=== PATIENT | male | born 1970 | race Caucasian/White ===

== ENCOUNTER → 2017-10-26 | Outpatient (CLI) | payer SELFPAY ==
[~2017-10-26] MED LIST: NAPR220C15 PO
== END | disposition home or self-care (01) ==
LOC: RAH 10:38
PROVIDERS: ATTEND Physical Medicine & Rehabilitation
DX: M79.674 Pain in right toe(s) (principal); R60.0 Localized edema
CPT/HCPCS: 73718

== ENCOUNTER → 2017-10-28 | Outpatient (CLI) | payer BC, SELFPAY ==
[~2017-10-28] MED LIST changes: +GADOBENATE DIMEGLUMINE 20 ML IV ONE
[2017-10-28 11:32] LABS: BASOPHILS % (AUTO) 0.5 % (0.0-5.0); EOSINOPHILS % (AUTO) 0.7 % (0.0-8.0); LYMPHOCYTES % (AUTO) 31.3 % (21.0-51.0); MEAN CORPUSCULAR HEMOGLOBIN 31.6 pg (27.0-33.0); MEAN CORPUSCULAR HGB CONC 35.6 g/dL (32.0-36.0); MEAN CORPUSCULAR VOLUME 88.6 fL (79-99); NEUTROPHILS % (AUTO) 59.5 % (40.0-77.0); PLATELET COUNT (AUTO) 221 K/uL (130-400); RED BLOOD CELL COUNT(AUTO) 4.63 MIL/uL (4.50-6.20); RED CELL DISTRIBUTION WIDTH 12.5 % (11.0-15.5); WHITE BLOOD COUNT (AUTO) 3.3 K/uL (4.8-10.8)
[2017-10-28 11:42] LABS: CREATININE 0.9 mg/dL (0.5-1.5); POTASSIUM 3.7 mmol/L (3.5-5.1)
[2017-10-28 11:47] LABS: ALBUMIN 4.3 g/dL (3.5-5.0); BILIRUBIN,TOTAL 0.8 mg/dL (0.2-1.0); TOTAL PROTEIN, SERUM 7.8 g/dL (6.0-8.3)
== END | disposition home or self-care (01) ==
LOC: EDH 11:10 → UNDOADMIN 11:14 → EDHIP 11:14 → EDSTATUS 17:13 → DAH 17:14
PROVIDERS: ATTEND Family Medicine
DX: M79.671 Pain in right foot (principal); L03.032 Cellulitis of left toe; Q60.0 Renal agenesis, unilateral
CPT/HCPCS: 36415; 73720; 80053; 85025; 85651; 86141; A9577

== ENCOUNTER → 2018-05-31 | Outpatient (CLI) | payer BC, SELFPAY ==
[~2018-05-31] MED LIST changes: -GADOBENATE DIMEGLUMINE 20 ML IV ONE
== END | disposition home or self-care (01) ==
LOC: RAH 13:02
PROVIDERS: ATTEND Family Medicine
DX: M79.672 Pain in left foot (principal)
CPT/HCPCS: 73718

== ENCOUNTER → 2020-03-16 | Outpatient (CLI) | payer BC ==
[~2020-03-16] MED LIST changes: +IOHEXOL 350 MG/ML 100ML INFUS..BTL IV ONE
== END | disposition home or self-care (01) ==
LOC: RAH 07:12
PROVIDERS: ATTEND Internal Medicine Gastroenterology
DX: R10.84 Generalized abdominal pain (principal); M54.5 Low back pain
CPT/HCPCS: 74177; Q9967

== ENCOUNTER → 2021-10-28 | Outpatient (CLI) | payer OTHER ==
[~2021-10-28] MED LIST changes: -IOHEXOL 350 MG/ML 100ML INFUS..BTL IV ONE
== END | disposition home or self-care (01) ==
LOC: RAH 12:51
PROVIDERS: ATTEND Family Medicine
DX: M79.672 Pain in left foot (principal); M79.89 Other specified soft tissue disorders
CPT/HCPCS: 73718

== ENCOUNTER 2024-04-20 06:10 | Day surgery (SDC) | payer BC, OTHER ==
[~2024-04-20] VITALS: Ht 175.3 cm; Wt 79.4 kg
[2024-04-20] VITALS (10 sets, daily range): BP systolic 94–129; BP diastolic 61–86; PULSE 67–74; RESP 14–17; TEMP 96.5–98.4
[~2024-04-20 06:10] MED LIST changes: +DULO60CA64 PO
[2024-04-20] MEDS: 0.9%NACL 1000ML 1,000 ML IV ONE (07:05)
[2024-04-20] MEDS ORDERED: proPOFol 10 MG/ML 20ML VIAL IV ONE (08:33)
== END 2024-04-20 09:52 | disposition home or self-care (01) ==
LOC: DAH 06:10 → ENDO 06:10
PROVIDERS: ATTEND Internal Medicine Gastroenterology
DX: Z12.11 Encounter for screening for malignant neoplasm of colon (principal); D12.5 Benign neoplasm of sigmoid colon; I10 Essential (primary) hypertension; E24.9 Cushing's syndrome, unspecified; Z98.1 Arthrodesis status; Z79.899 Other long term (current) drug therapy; Z98.890 Other specified postprocedural states
CPT/HCPCS: 45380; J2704; J7030; A4620; A7002; J3490

== ENCOUNTER → 2024-05-13 | Outpatient (CLI) | payer BC ==
[~2024-05-13] MED LIST changes: -NAPR220C15 PO
[2024-05-13 15:34] LABS: BASOPHILS # (AUTO) 0.02 K/uL (0.00-0.20); BASOPHILS % (AUTO) 0.4 % (0.0-5.0); EOSINOPHILS # (AUTO) 0.03 K/uL (0.00-0.70); EOSINOPHILS % (AUTO) 0.5 % (0.0-8.0); HEMATOCRIT 41.3 % (42-54); IMMATURE GRANULOCYTE ABSOLUTE 0.01 K/uL (0-1); LYMPHOCYTES # (AUTO) 1.3 K/uL (1.0-4.8); LYMPHOCYTES % (AUTO) 22.6 % (21.0-51.0); MEAN CORPUSCULAR HEMOGLOBIN 31.1 pg (27.0-33.0); MEAN CORPUSCULAR HGB CONC 34.1 g/dL (32.0-36.0); MONOCYTES # (AUTO) 0.4 K/uL (0.1-1.0); MONOCYTES % (AUTO) 7.1 % (3.0-13.0); NEUTROPHILS # (AUTO) 3.9 K/uL (1.8-7.7); NEUTROPHILS % (AUTO) 69.2 % (40.0-77.0); PLATELET COUNT (AUTO) 235 K/uL (130-400); RED BLOOD CELL COUNT(AUTO) 4.54 MIL/uL (4.50-6.20); RED CELL DISTRIBUTION WIDTH 12.2 % (11.0-15.5); WHITE BLOOD COUNT (AUTO) 5.6 K/uL (4.8-10.8)
[2024-05-13 16:00] LABS: ALBUMIN 4.1 g/dL (3.5-5.0); BILIRUBIN,TOTAL 0.5 mg/dL (0.2-1.0); CREATININE 1.2 mg/dL (0.5-1.3); MAGNESIUM 2.1 mg/dL (1.80-2.40); POTASSIUM 3.7 mmol/L (3.5-5.1); T4 (THYROXINE) 7.8 ug/dL (4.7-13.3); THYROID STIMULATING HORMONE 1.92 uIU/mL (0.36-3.74); TOTAL PROTEIN, SERUM 7.4 g/dL (6.0-8.3)
== END | disposition home or self-care (01) ==
LOC: LAB 14:57
PROVIDERS: ATTEND Nurse Practitioner Acute Care
DX: Z01.89 Encounter for other specified special examinations (principal); Z79.899 Other long term (current) drug therapy
CPT/HCPCS: 36415; 80050; 80053; 82306; 83721; 83735; 84436; 84443; 84479; 85025; 86140

== ENCOUNTER → 2024-06-08 | Outpatient (CLI) | payer BC | END | disposition home or self-care (01) | LOC: OIH 08:24 | PROVIDERS: ATTEND Internal Medicine Gastroenterology | DX: M47.814 Spondylosis without myelopathy or radiculopathy, thoracic region (principal); R10.84 Generalized abdominal pain; R63.4 Abnormal weight loss | CPT/HCPCS: 71046 ==

== ENCOUNTER 2024-07-21 07:53 | Day surgery (SDC) | payer BC ==
--- NOTE | 2024-07-19 16:01 | EKG ---
[facility] Test Date: 2024-07-19 Test Time: 16:42:26 Pat Name: BHARTI GUERRERO Department: [facility] Room: Gender: M Social Security Specialist: [id number] : 1970 Requested By: MANOJ ROCA Order Number: [id number] Reading MD: Barry Arias Measurements Intervals [place] Rate: 54 P: 45 SD: 196 QRS: 40 QRSD: 98 T: 39 QT: 440 QTc: 417 Interpretive Statements Sinus bradycardia No previous ECG available for comparison Electronically Signed On 07-19-2024 19:21:55 CAR ESCORT by Barry Arias Please click the below link to view image of tracing.
[2024-07-19 16:12] VITALS: BP 127/77; PULSE 61; RESP 18; TEMP 97.2
[2024-07-19 16:25] LABS: BASOPHILS # (AUTO) 0.02 K/uL (0.00-0.20); BASOPHILS % (AUTO) 0.4 % (0.0-5.0); EOSINOPHILS # (AUTO) 0.11 K/uL (0.00-0.70); HEMATOCRIT 39.7 % (42-54); IMMATURE GRANULOCYTE ABSOLUTE 0.01 K/uL (0-1); LYMPHOCYTES # (AUTO) 1.6 K/uL (1.0-4.8); LYMPHOCYTES % (AUTO) 28.8 % (21.0-51.0); MEAN CORPUSCULAR HEMOGLOBIN 30.5 pg (27.0-33.0); MEAN CORPUSCULAR HGB CONC 33.2 g/dL (32.0-36.0); MEAN CORPUSCULAR VOLUME 91.7 fL (79-99); MONOCYTES # (AUTO) 0.4 K/uL (0.1-1.0); MONOCYTES % (AUTO) 7.9 % (3.0-13.0); NEUTROPHILS # (AUTO) 3.3 K/uL (1.8-7.7); NEUTROPHILS % (AUTO) 60.7 % (40.0-77.0); PLATELET COUNT (AUTO) 236 K/uL (130-400); RED BLOOD CELL COUNT(AUTO) 4.33 MIL/uL (4.50-6.20); RED CELL DISTRIBUTION WIDTH 12.5 % (11.0-15.5); WHITE BLOOD COUNT (AUTO) 5.4 K/uL (4.8-10.8)
[2024-07-19 16:34] LABS: CREATININE 1.1 mg/dL (0.5-1.3); POTASSIUM 4.3 mmol/L (3.5-5.1)
[2024-07-19 16:40] LABS: INR 0.96 (0.85-1.15); PROTHROMBIN TIME 10.4 SEC (9.6-11.6)
[2024-07-19 16:42] LABS: PARTIAL THROMBOPLASTIN TIME 28.6 SEC (26.3-35.5)
[2024-07-21] VITALS (17 sets, daily range): BP systolic 11–138; BP diastolic 68–83; PULSE 71–101; RESP 14–20; TEMP 97.3–97.7
[~2024-07-21] VITALS: Ht 175.3 cm; Wt 81.9 kg
[~2024-07-21 07:53] MED LIST changes: +ERGO2000 PO; +TELM80TA10 PO
[2024-07-21] MEDS: ceFAZolin SODIUM 2 GM VIAL IVPB ONE (09:10)
[2024-07-21] MEDS ORDERED: MIDAZOLAM HCL 1 MG/ML 2ML VIAL ONE (09:10)
[2024-07-21] MEDS ORDERED: BUPIvacaine/PF 0.25% 30ML VIAL IJ ONE (09:13)
[2024-07-21] MEDS ORDERED: SUCCINYLCHOLINE CHLORIDE 20 MG/ML 10 ML VIAL ONE (09:13)
[2024-07-21] MEDS ORDERED: proPOFol 10 MG/ML 20ML VIAL IV ONE ×2 (09:13→10:38)
[2024-07-21] MEDS ORDERED: rocuRONium bROMide 10MG/1ML 5ML VL ONE ×3 (09:14→10:07)
[2024-07-21] MEDS ORDERED: FENTanyl CITRate PF 50 MCG/1 ML 2ML VIAL ONE ×2 (09:14→10:05)
[2024-07-21] MEDS: ceFAZolin SODIUM 2 GM VIAL ONE (09:22)
[2024-07-21] MEDS: LACTATED RINGERS 1000ML 1,000 ML IV ONE (09:22)
[2024-07-21] MEDS ORDERED: ePHEDrine SULFate 50 MG/ML AMPULE ONE (09:25)
[2024-07-21] MEDS ORDERED: ALBUMIN (HUMAN) 5% 250 ML IV ONE (09:32)
[2024-07-21] MEDS ORDERED: phenylEPHRINE HCL 10 MG/ML 1ML VIAL IV ONE (09:42)
[2024-07-21] MEDS ORDERED: GLYCOPYRROLATE 0.2 MG/ML 5 ML VIAL ONE (09:47)
[2024-07-21] MEDS ORDERED: hydrALAZine 20MG/ML VIAL ONE (09:52)
[2024-07-21] MEDS ORDERED: SUGAMMADEX SODIUM 200 MG/2 ML VIAL IV ONE (10:04)
[2024-07-21] MEDS ORDERED: dexaMETHasone SOD PHOSPHATE 10MG/ML 1ML VIAL ONE (10:28)
[2024-07-21] MEDS ORDERED: ondanSETRON 4MG INJ ONE (10:28)
[2024-07-21] MEDS ORDERED: acetaMINOPHEN 100 ML ONE (10:32)
[2024-07-21] MEDS ORDERED: NEOMY SULF/BACITRAC ZN/POLY OINT 30GM TUBE TP ONE (10:35)
--- NOTE | 2024-07-21 10:53 | OP ---
Operative Note: DATE OF PROCEDURE: 07/21/24 SURGEON: MANOJ ROCA MD TIRE WORKER: Abel Roca MD PA-C ANESTHESIA: General and Local ANESTHESIOLOGIST/CRUSHER WET GROUND MICA: [facility] [place] team PREOPERATIVE DIAGNOSIS: Umbilical hernia POSTOPERATIVE DIAGNOSIS: As above. 5x7cm defect with redundant umbilical skin SYNOPSIS: Hernia repair, with mesh reinforcement and umbilico-plasty with removal of excess skin PROCEDURE: 1. Laparoscopic hiatal hernia repair with mesh reinforcement 2. Umbilical plasty with removal of excess skin and recreation of umbilicus ESTIMATED BLOOD LOSS: Minimal, less than 20 cc INDICATIONS: As above DESCRIPTION OF PROCEDURE: After standard precautions and preparations were undertaken a Veress needle and optical trocar were used to enter the abdominal cavity. All other instruments were placed under direct vision. We identified the umbilical hernia immediately upon entry into the abdominal cavity. The patient had incarcerated omental fat as well as an incarcerated portion of the falciform ligament. LigaSure bipolar device was used to take down these abnormal attachments and reduce the incarcerated fat out of the hernia back into the peritoneal cavity. The defect was approximately 5 x 7 cm in greatest dimensions. Several interrupted PDS sutures were used to close the defect utilizing a suture passing technique. With the defect completely closed and the intra-abdominal pressure down to 6 mmHg we introduced a rectangular Bard Phasix mesh product, 11 x 8 cm which had several cm of overlap in every direction. We sutured the mesh in place and then utilized absorbable tacks to tack the mesh in all quadrants to allow it to lay flat on the abdominal wall. When this was complete all instruments were removed from the abdominal cavity and instrument counts were verified as correct including needles and sponges. We then turned our attention to the redundant umbilical skin. The skin was trimmed away to healthy edges and multiple sutures were used to pexy the new umbilicus into an appropriate anatomic position to give it the appearance of an inward protruding umbilicus. An appropriate dressing was placed as well as an abdominal binder and the patient was taken to PACU in stable condition. MANOJ ROCA MD Jul 21, 2024 10:53
--- NOTE | 2024-07-21 11:05 | PN ---
GENERAL SURGERY PROGRESS NOTE Date/Time Patient Seen: [ 07/21/2024 11:10 a.m.] Problem List: [ ] Interval History: [Postop day 0. Pain tolerable with p.r.n. medication. ] Physical Examination: GENERAL: [No acute distress.] Abdominal exam: Incisions clean, dry and intact, Dermabond in place, cotton ball with triple antibiotic ointment in umbilicus Vital Signs (last 8hr) Date Time Temp Pulse Resp B/P (MAP) Pulse Ox O2 Delivery O2 Flow Rate FiO2 07/21/24 08:15 97.3 73 18 138/83 98 Room Air Laboratory: [ ] Hematology Labs: Test 07/19/24 15:30 Range/Units White Blood Count 5.4 4.8-10.8 K/uL Red Blood Count 4.33 L 4.50-6.20 MIL/uL Hemoglobin 13.2 L 14.0-18.0 g/dL Hematocrit 39.7 L 42-54 % Mean Corpuscular Volume 91.7 79-99 fL Mean Corpuscular Hemoglobin 30.5 27.0-33.0 pg Mean Corpuscular Hemoglobin Concent 33.2 32.0-36.0 g/dL Red Cell Distribution Width 12.5 11.0-15.5 % Platelet Count 236 130-400 K/uL Mean Platelet Volume 10.9 H 7.5-10.5 fL Immature Granulocyte % (Auto) 0.2 0-1 % Neutrophils (%) (Auto) 60.7 40.0-77.0 % Lymphocytes (%) (Auto) 28.8 21.0-51.0 % Monocytes (%) (Auto) 7.9 3.0-13.0 % Eosinophils (%) (Auto) 2.0 0.0-8.0 % Basophils (%) (Auto) 0.4 0.0-5.0 % Neutrophils # (Auto) 3.3 1.8-7.7 K/uL Lymphocytes # (Auto) 1.6 1.0-4.8 K/uL Monocytes # (Auto) 0.4 0.1-1.0 K/uL Eosinophils # (Auto) 0.11 0.00-0.70 K/uL Basophils # (Auto) 0.02 0.00-0.20 K/uL Absolute Immature Granulocyte (auto 0.01 0-1 K/uL Nucleated Red Blood Cells 0.0 0.0-0.19 % Chemistry Labs: Test 07/19/24 15:30 Range/Units Sodium Level 145 136-145 mmol/L Potassium Level 4.3 3.5-5.1 mmol/L Chloride Level 109 101-111 mmol/L Carbon Dioxide Level 34 H 21-32 mmol/L Blood Urea Nitrogen 19 H 7-18 mg/dL Creatinine 1.1 0.5-1.3 mg/dL Glomerular Filtration Rate Calc 79 >90 mL/min Random Glucose 93 70-105 mg/dL Total Calcium 9.2 8.5-10.1 mg/dL Coagulation Labs: Test 07/19/24 15:30 Range/Units Prothrombin Time 10.4 9.6-11.6 SEC Prothromb Time International Ratio 0.96 0.85-1.15 Activated Partial Thromboplast Time 28.6 26.3-35.5 SEC Diagnostics / Radiology: [Copy/Paste Echos/Imaging Report here] Impression and Plan: [ Assessment/plan: Postop day 0. Plan is for discharge home today with outpatient follow up in 5-10 days, sooner if needed. Cotton ball with triple antibiotic ointment to remain in umbilicus x3 days from date of surgery. Patient understands and agrees.] MANOJ ROCA MD Jul 21, 2024 11:05
[2024-07-21] MEDS: MEPERIDINE-PF 25 MG/ML SYG ONE ×2 (11:07→11:30)
--- NOTE | 2024-07-21 12:38 | NUR ---
Full and complete Discharge Instructions given to Patient and Family Friend both verbally and in writing.. All questions answered. Voiced understanding to Surgical precautions and Follow Up. Instructed on Full liquids only today to AAT. PIV removed with catheter tip intact. Denies c/o pain or discomfort. Ambulated to Bathroom where voided large amount. D/C'd W/C to POV with Family Friend to Home. Addendum: 07/21/24 at 1256 by JUANITA MICHELLE RN RN FERMÍN Richardson ordered Toradol 30 mg IM x 1 dose and Sabine SHAH gave abdominal binder as per Patient request as Dr. Crum said he would have one upon discharge. Addendum: 07/21/24 at 1315 by JUANITA MICHELLE RN RN Patient requested Toradol 30 mg IM x 1 from Pradip Richardson visit to his room. Order written. Administered IM to right hip area without issue. W/C to POV with Frient to home.
[2024-07-21] MEDS: ketOROlac 30MG VIAL (30MG/ML) ONE (13:13)
== END 2024-07-21 13:10 | disposition home or self-care (01) ==
LOC: DAH 07:53
PROVIDERS: ATTEND Surgery
DX: K42.0 Umbilical hernia with obstruction, without gangrene (principal); R10.84 Generalized abdominal pain; L98.7 Excessive and redundant skin and subcutaneous tissue; I10 Essential (primary) hypertension; E66.9 Obesity, unspecified; E24.9 Cushing's syndrome, unspecified; Z86.0100 Personal history of colon polyps, unspecified; Z98.1 Arthrodesis status; Z98.890 Other specified postprocedural states; Z79.899 Other long term (current) drug therapy
CPT/HCPCS: 80048; 85025; 85610; 85730; 86850; 86900; 86901; 36415; 93005; 49594; 17999; A6260; A4663; J7030 ×2; A4344; A4215 ×2; A4649 ×3; P9045; J7120; J3010 ×2; J1100; J0330; J0665; J3490 ×4; J0360; J2250; J2704 ×2; J2405; J1885; J2175 ×2; J2371; J0690 ×2; A4930; C1781; A4648; A4222; A4221; A4223 ×2; A4600